=== PATIENT | male | born 1970 | race Caucasian/White ===

== ENCOUNTER 2022-07-19 17:49 | Emergency (ER) | payer OTHER ==
[2022-07-19 19:19] VITALS: BP 111/66; PULSE 84; RESP 17; TEMP 98.1; BMI 25.0
[2022-07-19] MEDS ORDERED: ACETAMINOPHEN 500 MG TABLET (FP) PO ONE (21:26)
[2022-07-19] MEDS ORDERED: ACETAMINOPHEN 500 MG TABLET (FP) ONE (21:29)
[2022-07-19] MEDS ORDERED: KETOROLAC TROMETHAMINE 30 MG/1 ML VIAL IM ONE (22:19)
[2022-07-19] MEDS ORDERED: KETOROLAC TROMETHAMINE 30 MG/1 ML VIAL ONE (22:25)
== END 2022-07-19 22:40 | disposition home or self-care (01) ==
LOC: JER 17:49 → JERFT 17:49
PROC: 3E0233Z Introduction of Anti-inflammatory into Muscle, Percutaneous Approach (ICD-10-PCS; principal; 2022-07-19)
DX: S02.2XXA Fracture of nasal bones, initial encounter for closed fracture (principal); V49.40XA Driver injured in collision with unspecified motor vehicles in traffic accident, initial encounter
CPT/HCPCS: 70150-TC-FY; 99284-25